=== PATIENT | female | born 1935 | race Two or more races ===

== ENCOUNTER 2025-04-23 12:23 | Inpatient (IN) | payer OTHER ==
[~2025-04-23] VITALS: Ht 152.4 cm; Wt 31.8 kg
--- NOTE | 2025-04-23 12:39 | NUR ---
PACIENTE FEMENINA ALERTA Y ORIENTADA X3, REFIERE DIFICULTAD AL RESPIRAR, DEPENDIENTE DE OXIGENA, UTILIZA A CANULA NASAL A 3LT/MIN. SE LE REALIZA EKG Y SE LE PRESENTA A Y VERBALIZA COLOCARLA EN PASILLO.
[2025-04-23] MEDS ORDERED: CHILDREN'S ASPI81 MG (12:42)
[2025-04-23] MEDS ORDERED: TOPROL XL25 M1 (12:42)
[2025-04-23] MEDS ORDERED: LASIX20 MG (12:42)
[2025-04-23] MEDS ORDERED: COZAAR25 MG (12:42)
[2025-04-23] MEDS ORDERED: PEPCID AC10 MG (12:43)
[2025-04-23] MEDS ORDERED: LEVALBUTEROL HCL 0.63 MG/3 ML SOLUTION IH ONE ×2 (13:00→18:49)
[2025-04-23 13:27] LABS: BASO % 0.3 % (0.1-1.2); EOS # 0.06 (0.04-0.54); EOS % 0.6 % (0.7-7.0); LYMPH # 1.44 (1.18-3.74); LYMPH % 14.5 % (19.3-53.1); MEAN PLATELET VOLUME 10.20 fl (9.4-12.4); MONO # 0.69 (0.24-0.82); MONO % 7.0 % (4.7-12.5); NEUT # 7.64 (1.56-6.13); NEUT % 77.1 % (34.0-71.1); RED CELL DISTRIBUTION WIDTH 12.5 % (11.6-14.4)
--- NOTE | 2025-04-23 13:27 | NUR ---
SE REALIZA LAB VEL ORDEN MEDICA BAJO MEDIDAS ASEPTICAS. SE ORIENTA PTE QUIEN REFIERE ENTENDER Y ACEPTAR. SE NOTIFICA A TERAPIA RESPIRATORIA SOBRE ABG PENDIENTE
[2025-04-23 14:06] LABS: COVID-19 AG NEGATIVE (NEGATIVE)
[2025-04-23 14:48] LABS: BUN CREA RATIO 25.0 (7.0-25.0); CREATININE SERUM 0.64 mg/dL (0.55-1.02); GFR 87.37; GLUCOSE FASTING 126.0 mg/dL (65-100); OSMOLALITY SERUM 284.0 MOSM/KG (275-295)
[2025-04-23 14:51] LABS: ABG PH 7.467 (7.35-7.45)
[2025-04-23 14:52] LABS: ABG PO2 41.4 mmHg (80-100)
[2025-04-23 14:53] LABS: BICARBONATE 40.1 mmol/l (23-25)
[2025-04-23 14:54] LABS: o2 21 %
[2025-04-23 17:29] LABS: URINE APPEARANCE Cloudy; URINE BILIRRUBIN Negative (NEGATIVE); URINE BLOOD Negative; URINE COLOR Yellow; URINE GLUCOSE Negative (NEGATIVE); URINE KETONE Trace (NEGATIVE); URINE LEUKOCYTE Small; URINE NITRATE Negative; URINE UROBILINOGEN 1.0 E.U./dl
[2025-04-23 17:32] LABS: URINE BACTERIA 652.7 uL (0.0-1933); URINE EPITHELIAL CELLS 47.9 uL (0.0-38.8); URINE RBC 36.2 uL (0.0-20.8); URINE WBC 77.9 uL (0.0-23.2)
[2025-04-23 17:48] LABS: URINE CAST 0.14 uL (0.0-1.40); URINE PROTEIN 100 (NEGATIVE)
[2025-04-23] MEDS ORDERED: LEVALBUTEROL HCL 0.63 MG/3 ML SOLUTION IH SCH (17:59)
--- NOTE | 2025-04-23 19:28 | NUR ---
SE NOTIFICAN TERAPIAS RESP A MS MAK.
[2025-04-23] MEDS ORDERED: DIALYVITE TABL1 EACH PO (19:56)
[2025-04-23] MEDS ORDERED: AZITHROMYCIN 500 MG in DEXTROSE 5 % IN WATER 250 ML IV SCH (20:07)
[2025-04-23] MEDS ORDERED: CEFTRIAXONE SODIUM 2,000 MG in 0.9 % SODIUM CHLORIDE 100 ML IV SCH (20:07)
[2025-04-23] MEDS ORDERED: 0.9 % SODIUM CHLORIDE 1,000 ML IV SCH (20:15)
[2025-04-23] MEDS ORDERED: IPRATROPIUM BROMIDE 0.5 MG/2.5 ML AMPUL.NEB IH SCH ×2 (20:15→21:00)
[2025-04-23] MEDS ORDERED: LEVALBUTEROL HCL 1.25 MG/3 ML SOLUTION IH SCH ×2 (20:15→21:00)
[2025-04-23] MEDS ORDERED: ACETAMINOPHEN 500 MG GEL..CAP PO PRN (20:15)
[2025-04-23] MEDS ORDERED: METHYLPREDNISOLONE SOD SUCC 125 MG VIAL IV ONE (20:15)
[2025-04-23] MEDS ORDERED: AZITHROMYCIN 500 MG VIAL IV ONE (20:36)
[2025-04-23] MEDS ORDERED: CEFTRIAXONE SODIUM 2,000 MG VIAL ONE (20:36)
[2025-04-23] MEDS ORDERED: METHYLPREDNISOLONE SOD SUCC 125 MG VIAL ONE (20:36)
[2025-04-23 20:57] VITALS: BP 137/70; O2SAT 99
[2025-04-23 21:03] LABS: INR 1.1
[2025-04-23 22:22] VITALS: BP 116/66
[2025-04-24] MEDS ORDERED: METHYLPREDNISOLONE SOD SUCC 40 MG VIAL IV SCH (01:00)
[2025-04-24 01:40] VITALS: BP 108/66; O2SAT 100
[2025-04-24 08:00] VITALS: BP 95/59; O2SAT 97
[2025-04-24] MEDS ORDERED: ENOXAPARIN SODIUM 30 MG/0.3 ML SYRINGE SUBCUTANEO SCH (09:00)
[2025-04-24] MEDS ORDERED: METOPROLOL SUCCINATE 25 MG TAB.SR.24H PO SCH (09:00)
[2025-04-24] MEDS ORDERED: LOSARTAN POTASSIUM 25 MG TABLET PO SCH (09:00)
[2025-04-24] MEDS ORDERED: ASPIRIN 81 MG TAB.CHEW PO SCH (09:00)
[2025-04-24] MEDS ORDERED: FAMOTIDINE/PF 20 MG in 0.9 % SODIUM CHLORIDE 8 ML IV PUSH SCH (09:00)
[2025-04-24 10:09] VITALS: BP 114/65
[2025-04-24 18:28] VITALS: BP 107/63
[2025-04-24] MEDS ORDERED: AZITHROMYCIN 500 MG VIAL IV ONE (19:47)
[2025-04-24] MEDS ORDERED: AZITHROMYCIN 500 MG VIAL IV SCH (21:00)
[2025-04-25 03:39] VITALS: BP 99/59; O2SAT 100
[2025-04-25 08:05] VITALS: BP 93/56; O2SAT 100
[2025-04-25 12:58] LABS: BASO % 0.2 % (0.1-1.2); EOS # 0.00 (0.04-0.54); EOS % 0.0 % (0.7-7.0); LYMPH # 0.38 (1.18-3.74); LYMPH % 2.9 % (19.3-53.1); MEAN PLATELET VOLUME 10.80 fl (9.4-12.4); MONO # 0.41 (0.24-0.82); MONO % 3.2 % (4.7-12.5); NEUT # 12.00 (1.56-6.13); NEUT % 92.6 % (34.0-71.1); RED CELL DISTRIBUTION WIDTH 13.1 % (11.6-14.4)
[2025-04-25 13:56] LABS: ALT/SGPT 15 U/L (12-78); AST/SGOT 21 U/L (15-37); BUN CREA RATIO 34 (7.0-25.0); CREATININE SERUM 0.56 mg/dL (0.55-1.02); GFR 101.93; GLOBULINA 3.7 G/DL (2.4-3.5); GLUCOSE FASTING 165 mg/dL (65-100); OSMOLALITY SERUM 295 MOSM/KG (275-295)
[2025-04-25 14:11] LABS: BILIRUBIN TOTAL < 0.10 mg/dL (0.3-1.2)
[2025-04-25] MEDS ORDERED: AZITHROMYCIN 500 MG VIAL IV ONE (16:00)
[2025-04-25 16:50] VITALS: BP 96/57; O2SAT 99
[2025-04-25] MEDS ORDERED: POTASSIUM PHOS,M-BASIC-D-BASIC 18 MM in 0.9 % SODIUM CHLORIDE 250 ML IV ONE (20:30)
[2025-04-26 06:22] LABS: BASO % 0.2 % (0.1-1.2); EOS # 0.00 (0.04-0.54); EOS % 0.0 % (0.7-7.0); LYMPH # 0.38 (1.18-3.74); LYMPH % 3.0 % (19.3-53.1); MEAN PLATELET VOLUME 10.70 fl (9.4-12.4); MONO # 0.18 (0.24-0.82); MONO % 1.4 % (4.7-12.5); NEUT # 11.88 (1.56-6.13); NEUT % 94.1 % (34.0-71.1); RED CELL DISTRIBUTION WIDTH 13.0 % (11.6-14.4)
[2025-04-26 07:04] LABS: ALT/SGPT 17.0 U/L (12-78); AST/SGOT 19.0 U/L (15-37); BILIRUBIN TOTAL 0.13 mg/dL (0.3-1.2); BUN CREA RATIO 28.0 (7.0-25.0); CREATININE SERUM 0.65 mg/dL (0.55-1.02); GFR 85.82; GLOBULINA 3.5 G/DL (2.4-3.5); GLUCOSE FASTING 114.0 mg/dL (65-100); OSMOLALITY SERUM 295.0 MOSM/KG (275-295)
[2025-04-26 08:42] VITALS: BP 133/75; O2SAT 100
[2025-04-26] MEDS ORDERED: DEXTROSE 5 % IN WATER 1,000 ML IV SCH (13:45)
[2025-04-26 15:55] VITALS: BP 150/75; O2SAT 96
[2025-04-26] MEDS ORDERED: METHYLPREDNISOLONE SOD SUCC 40 MG VIAL IV SCH (17:00)
[2025-04-26 23:00] VITALS: BP 137/72; O2SAT 99
[2025-04-27 07:51] VITALS: BP 149/80; O2SAT 99
[2025-04-27 17:20] VITALS: BP 139/81
[2025-04-27 23:00] VITALS: BP 135/74; O2SAT 100
[2025-04-28 08:29] VITALS: BP 129/80; O2SAT 99
[2025-04-28 17:25] VITALS: BP 134/66
[2025-04-29 02:19] VITALS: BP 149/75; O2SAT 100
[2025-04-29 06:21] LABS: BASO % 0.1 % (0.1-1.2); EOS # 0.00 (0.04-0.54); EOS % 0.0 % (0.7-7.0); LYMPH # 0.81 (1.18-3.74); LYMPH % 8.0 % (19.3-53.1); MEAN PLATELET VOLUME 10.70 fl (9.4-12.4); MONO # 0.70 (0.24-0.82); MONO % 6.9 % (4.7-12.5); NEUT # 8.51 (1.56-6.13); NEUT % 84.4 % (34.0-71.1); RED CELL DISTRIBUTION WIDTH 12.5 % (11.6-14.4)
[2025-04-29 07:11] LABS: ALT/SGPT 34.0 U/L (12-78); AST/SGOT 27.0 U/L (15-37); BILIRUBIN TOTAL 0.21 mg/dL (0.3-1.2); BUN CREA RATIO 27.0 (7.0-25.0); CREATININE SERUM 0.52 mg/dL (0.55-1.02); GFR 111.03; GLOBULINA 3.0 G/DL (2.4-3.5); GLUCOSE FASTING 101.0 mg/dL (65-100); OSMOLALITY SERUM 280.0 MOSM/KG (275-295)
[2025-04-29 08:40] VITALS: BP 125/65; O2SAT 97
[2025-04-29] MEDS ORDERED: TRIAMCINOLONE ACETONIDE 40 MG/ML VIAL IM STA (15:43)
[2025-04-29] MEDS ORDERED: INTEGRA PLUS C1 EACH PO (15:59)
[2025-04-29 16:39] VITALS: BP 103/58; O2SAT 99
== END 2025-04-29 16:39 | disposition home or self-care (01) | DRG 190 ==
LOC: ER 12:23 → MEDI 21:10
PROVIDERS: Emergency Medicine; General Practice; Internal Medicine; ADMIT Internal Medicine; ATTEND Internal Medicine
PROC: BB24ZZZ Computerized Tomography (CT Scan) of Bilateral Lungs (ICD-10-PCS; principal; 2025-04-23)
PROC: 4A033R1 Measurement of Arterial Saturation, Peripheral, Percutaneous Approach (ICD-10-PCS; 2025-04-23)
PROC: 3E0F7GC Introduction of Other Therapeutic Substance into Respiratory Tract, Via Natural or Artificial Opening (ICD-10-PCS; 2025-04-23)
DX: J44.1 Chronic obstructive pulmonary disease with (acute) exacerbation (principal); J18.9 Pneumonia, unspecified organism; J84.10 Pulmonary fibrosis, unspecified; R09.02 Hypoxemia